=== PATIENT | male | born 1970 | race Caucasian/White ===

== ENCOUNTER 2018-02-16 09:23 | Emergency (ER) | payer OTHER, MEDICAID, SELFPAY ==
[2018-02-16 09:26] VITALS: BP 143/81; PULSE 70; RESP 14; TEMP 36.1; O2SAT 99; BMI 23.5
--- NOTE | 2018-02-16 09:47 | ED.LOWEXIN ---
HPI - Extremity Injury (Lower) General Chief Complaint: Extremity Injury, Lower Stated Complaint: RIGHT ANKLE PAIN, SURGERY TWO MONTHS AGO Time Seen by Provider: 02/16/18 09:47 Source: patient Mode of arrival: ambulatory Limitations: no limitations History of Present Illness HPI Narrative: 47-year-old male here for evaluation of right ankle pain. Patient states that 2 months ago he had a right ankle scope with debridement done by . Patient states that since then he has been progressing through physical therapy however for the past month he has noticed an increasing pain and swelling of his right ankle. He states that he went to the pool this morning to do some physical therapy and had difficult time getting out of the pool. He states that he is now back using crutches secondary to pain when he walks. He was able to schedule appointment with his operative surgeon however that his in 1 week from now. Related Data Home Medications Medication Instructions Recorded Confirmed ibuprofen 800 mg PO TIDP PRN 02/16/18 02/16/18 Previous Rx's Medication Instructions Recorded hydrocodone-acetaminophen 1 tab PO Q6H PRN #10 tab 02/16/18 Allergies Allergy/AdvReac Type Severity Reaction Status Date / Time No Known Drug Allergies Allergy Verified 02/16/18 09:29 Review of Systems Constitutional Denies chills, Denies fever(s), Denies lethargy and Denies weakness Cardiovascular Denies chest pain, Denies irregular heart rhythm, Denies lightheadedness, Denies palpitations, Denies dyspnea, Denies dyspnea on exertion and Denies orthopnea Respiratory Denies cough, Denies dyspnea, Denies dyspnea on exertion and Denies wheezing Musculoskeletal Comments: Right ankle pain and swelling Integumentary/Breasts Comments: Redness that comes and goes around his right ankle Neurologic Denies weakness Comments: Mild tingling to his right lower extremity Endocrine Denies palpitations Hematologic/Lymphatic Denies easy bruising Allergic/Immunologic Denies wheezing PFSH Social History Smoking Status: Never smoker Exam Const General: cooperative and well developed Nutritional Appearance: well nourished Orientation: alert, awake, oriented x3 and not confused Cardio Other: 2+ DP pulse on the right with brisk capillary refill Neuro General: alert, oriented x3, gait normal and no focal motor deficits Cranial Nerves: CN's II-XI intact bilaterally Speech: speech normal Motor: strength 5/5 throughout Sensory Exam: no sensory deficits noted Other: Sensation intact to light touch right lower extremity Extrem Other: Right thigh unremarkable Right knee unremarkable Right calf unremarkable Right ankle with mild swelling and tenderness to palpation throughout Right foot remarkable MDM - Extremity Injury (Lower) MDM Narrative Medical decision making narrative: Patient's physical exam today is not consistent with cellulitis. He has no fevers. His exam is also not consistent with a DVT. The swelling is localized to his right ankle. He has no calf pain. No right thigh pain. No shortness of breath. No specific trauma. His symptoms have been worsening over the past week. Will hold on x-rays for now. Attempted to contact Dr. wick however she was not in the office and not divisional merchandising manager today. Had a long discussion with the patient. Will hold on further workup for now. Will hold on lab reports for now. Will hold on radiologic studies. He was given return precautions for signs and symptoms of cellulitis versus DVT. He expressed understanding. Will give pain medication for him at night for sleeping. He will keep his appointment with Dr. Hudson next week. Expressed understanding and agreement with plan Course Last Vital Signs Temp 97.0 F L 02/16/18 09:26 Pulse 64 02/16/18 10:13 Resp 14 02/16/18 09:26 BP 143/81 H 02/16/18 09:26 Pulse Ox 99 02/16/18 09:26 Discharge Plan Departure Patient Disposition: Home, Self-Care Clinical Impression: Right ankle pain Discharge Date/Time: 02/16/18 11:01 Interventions: ED Discharge Assessment Last Done: 02/16/18 11:00 Instructions: How To Perform RICE (Rest, Ice, Compress, Elevate) Activity Restrictions/Additional Instructions: Recommend that you keep your right leg elevated and iced for the next couple days. Keep your follow-up next week with her orthopedic surgeon. Return to the emergency department for any new symptoms, worsening pain, fevers, pain that radiates up her leg, or any other concerning symptoms Prescriptions: New hydrocodone-acetaminophen 5-325 mg tablet 1 tab PO Q6H PRN (Reason: pain) Qty: 10 RF: 0 No Action ibuprofen 800 MG tablet 800 mg PO TIDP PRN (Reason: Pain (Scale Score 4-6)) RF: 0
[2018-02-16 10:13] VITALS: PULSE 64
--- NOTE | 2018-02-16 10:14 | PC.NURSE ---
Post surgical x 2 months. Now w/ increased pain in absence of new injury. No s/s of infection.
== END 2018-02-16 11:01 | disposition home or self-care (01) ==
PROVIDERS: Emergency Provider Emergency Medicine; Family Provider Family Medicine; PCP Family Medicine
DX: M25.571 Pain in right ankle and joints of right foot (principal)
CPT/HCPCS: 99282

== ENCOUNTER → 2018-09-13 15:04 | Outpatient (CLI) | payer OTHER, MEDICAID, SELFPAY ==
--- NOTE | 2018-09-13 | DI.RAD.S_ITS ---
PROCEDURE: XR KNEE LT 3V INDICATIONS: Left Knee pain TECHNIQUE: 3 views of the knee were acquired. COMPARISON: None. FINDINGS: Bones: No fractures or dislocations. No suspicious bony lesions. Minimal to mild medial and patellofemoral compartment narrowing. No erosions are identified. Soft tissues: Mild to moderate joint effusion. No suspicious soft tissue calcifications. IMPRESSION: Mild to moderate effusion with early degenerative change as above. Dictated by: Sanam Espinoza M.D. on 09/13/2018 at 17:26 Approved by: Sanam Espinoza M.D. on 09/13/2018 at 17:27
== END ==
PROVIDERS: Family Provider Family Medicine; PCP Family Medicine; Visit Provider Family Medicine
DX: M25.562 Pain in left knee (principal); M25.462 Effusion, left knee
CPT/HCPCS: 73562

== ENCOUNTER → 2020-08-22 09:59 | Outpatient (CLI) | payer OTHER, MEDICAID, SELFPAY ==
--- NOTE | 2020-08-22 | DI.CT.S_ITS ---
PROCEDURE: CT ABDOMEN PELVIS W CON INDICATIONS: Unspecified abdominal pain TECHNIQUE: After the administration of oral and intravenous contrast, 5 mm thick sections acquired from the diaphragms to the symphysis. 5 mm thick coronal and sagittal reformats were performed. For radiation dose reduction, the following was used: automated exposure control, adjustment of mA and/or kV according to patient size. COMPARISON: None. FINDINGS: Image quality: Excellent. ABDOMEN: Lung bases: Lung bases are clear. Heart size is normal. Solid organs: 13 mm cyst within the right hepatic dome superolaterally. Liver is otherwise normal in size and enhancement. Gallbladder is within normal limits . Biliary system is non-dilated. Pancreas enhances normally. Pancreas divisum. Spleen is normal in size and enhancement. No adrenal nodules. Kidneys are normal in size and enhancement, without hydronephrosis. Peritoneum and bowel: Stomach, small bowel, and colon loops are normal in caliber and wall thickness. No free fluid or air. Normal appendix. Nodes and vessels: No retroperitoneal or mesenteric adenopathy. Aorta and inferior vena cava are normal in caliber. Miscellaneous: No ventral hernias. PELVIS: Genitourinary: Bladder wall thickness is normal. Miscellaneous: No inguinal hernias or adenopathy. Bones: No suspicious bony lesions. No vertebral body compression fractures. IMPRESSION: 1. No acute process. 2. Normal appendix. Dictated by: Dawood Goel M.D. on 08/22/2020 at 12:48 Approved by: Dawood Goel M.D. on 08/22/2020 at 12:50
== END ==
PROVIDERS: Family Provider Family Medicine; PCP Family Medicine; Referring Provider Family Medicine; Visit Provider Family Medicine
DX: R10.9 Unspecified abdominal pain (principal)
CPT/HCPCS: 74177; Q9967

== ENCOUNTER → 2020-12-09 15:38 | Outpatient (CLI) | payer OTHER, MEDICAID, SELFPAY ==
--- NOTE | 2020-12-09 15:43 | DI.RAD.S_ITS ---
PROCEDURE: XR FOOT LT MIN 3V INDICATIONS: LT FOOT PAIN TECHNIQUE: 3 views of the foot were acquired. COMPARISON: [facility], , FOOT 3V RIGHT, 04/17/2014, 10:24. FINDINGS: Bones: No fractures or dislocations. Mild 1st MTP joint osteoarthritic changes are noted. Mild interphalangeal joint osteoarthritis is also seen. There is a tiny plantar calcaneal enthesophyte. Bipartite medial sesamoid of 1st metatarsal head is seen. No suspicious bony lesions. Soft tissues: No tibiotalar joint effusion. Achilles tendon appears normal. IMPRESSION: Very mild forefoot joint osteoarthritis. Tiny plantar calcaneal enthesophyte. No fracture or dislocation. Dictated by: Alejandro Aguilera M.D. on 12/09/2020 at 16:07 Approved by: Alejandro Aguilera M.D. on 12/09/2020 at 16:11
== END ==
PROVIDERS: Family Provider Family Medicine; PCP Family Medicine; Referring Provider Family Medicine; Visit Provider Family Medicine
DX: M79.672 Pain in left foot (principal); M19.072 Primary osteoarthritis, left ankle and foot
CPT/HCPCS: 73630

== ENCOUNTER → 2021-12-03 09:59 | Outpatient (CLI) | payer OTHER, MEDICAID, SELFPAY ==
--- NOTE | 2021-12-03 | DI.RAD.S_ITS ---
PROCEDURE: XR KNEE RT 3V INDICATIONS: Pain in right knee TECHNIQUE: 3 views of the knee were acquired. COMPARISON: [facility], CR, XR KNEE LT 3V, 09/13/2018, 15:22. FINDINGS: Bones: Subtle vertical lucency in the lateral tibial plateau. No dislocations. No suspicious bony lesions. Mild tricompartmental knee joint degeneration. Fragmentation of the tibial tubercle suggesting Deysi-Schlatter disease. Soft tissues: Moderate joint effusion. No suspicious soft tissue calcifications. IMPRESSION: 1. Subtle vertical lucency in the lateral tibial plateau suspect lateral tibial plateau fracture. 2. Moderate knee joint effusion. 3. Mild tricompartmental knee joint degeneration. 4. 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 Dictated by: Pia Keene M.D. on 12/03/2021 at 12:00 Approved by: Pia Keene M.D. on 12/03/2021 at 12:04
== END ==
PROVIDERS: Family Provider Family Medicine; PCP Family Medicine; Referring Provider Family Medicine; Visit Provider Family Medicine
DX: M17.11 Unilateral primary osteoarthritis, right knee (principal); M25.561 Pain in right knee; M25.461 Effusion, right knee
CPT/HCPCS: 73562

== ENCOUNTER → 2021-12-17 12:27 | Outpatient (CLI) | payer OTHER, MEDICAID, SELFPAY ==
--- NOTE | 2021-12-17 | DI.MRI.S_ITS ---
PROCEDURE: MR KNEE RT WO CON INDICATIONS: Pain in right knee TECHNIQUE: Noncontrast sagittal PD fast spin echo and T2 fast spin echo with fat saturation, sagittal 3-D FLASH with fat saturation; coronal T1 spin echo and PD fast spin echo with fat saturation, and axial PD fast spin echo with fat saturation through the knee. COMPARISON: [facility], CR, XR KNEE RT 3V, 12/03/2021, 10:05. FINDINGS: Image quality: Excellent. Menisci: The lateral meniscus is intact. Small defect in the free edge of the medial meniscus, compatible with small radial tear (11-21). Cruciate ligaments: The anterior and posterior cruciate ligaments appear intact. Medial structures: The medial collateral ligament appears intact. Visualized portions of the pes anserinus tendons appear normal. Small amount bursal fluid. Lateral structures: The lateral collateral ligament complex appears intact. The popliteus tendon appears normal. Iliotibial band appears normal. Anterior structures: The quadriceps and patellar tendons appear intact. T2 hyperintense signal along the posterior aspect of the patellar tendon attachment, which may reflect tendinopathy. Patellar alignment is normal. No femoral trochlear dysplasia or ventral trochlear prominence. No edema in the infrapatellar fat pad. Bones and cartilage: Minimal displaced fracture of the lateral tibial plateau (7-9) with adjacent contusion. Small focus of subchondral edema in the anterior aspect, lateral femoral condyle with overlying thinning of the hyaline cartilage. Signal heterogeneity and thinning of the tricompartment hyaline cartilage. 3.5 mm partial thickness defect in the hyaline cartilage overlying the patellar apex. Joint space: Small knee joint fluid. A 7.4 x 1.6 x 3.1 cm T2 hyperintense lesion is seen in the popliteal fossa, most consistent with a Rodriguez cyst. IMPRESSION: 1. Minimal displaced fracture of the lateral tibial plateau with adjacent contusion. 2. Rodriguez's cyst as detailed above. 3. Small joint effusion. 4. Small radial tear in the medial meniscus. 5. Tendinopathy of the distal patellar tendon. 6. Pes anserine bursitis. Dictated by: Cory Haque M.D. on 12/17/2021 at 14:10 Approved by: Cory Haque M.D. on 12/17/2021 at 14:24
== END ==
PROVIDERS: Family Provider Family Medicine; PCP Family Medicine; Referring Provider Family Medicine; Visit Provider Family Medicine
DX: M25.561 Pain in right knee (principal); S82.141A Displaced bicondylar fracture of right tibia, initial encounter for closed fracture; M71.21 Synovial cyst of popliteal space [Baker], right knee; M25.461 Effusion, right knee; S83.241A Other tear of medial meniscus, current injury, right knee, initial encounter; M71.561 Other bursitis, not elsewhere classified, right knee
CPT/HCPCS: 73721

== ENCOUNTER → 2022-05-19 15:43 | Outpatient (CLI) | payer OTHER, MEDICAID, SELFPAY ==
--- NOTE | 2022-05-19 | DI.RAD.S_ITS ---
PROCEDURE: XR WRIST LT MIN 3V INDICATIONS: pain in left wrist TECHNIQUE: 4 views of the wrist were acquired. COMPARISON: None. FINDINGS: Bones: No fractures or dislocations. No suspicious bony lesions. Mild 1st CMC joint space narrowing with periarticular osteophyte formation. Scaphoid view: Intact scaphoid. Soft tissues: No suspicious soft tissue calcifications. IMPRESSION: Mild 1st CMC joint degeneration. Dictated by: Skip Bobby [facility] Interpreted: Last Cottrell MD on 05/19/2022 at 15:56 Transcribed by: CONRAD on 05/19/2022 at 15:57 Approved by: Last Cottrell M.D. on 05/19/2022 at 17:57
== END ==
PROVIDERS: Family Provider Family Medicine; PCP Family Medicine; Referring Provider Family Medicine; Visit Provider Family Medicine
DX: M18.12 Unilateral primary osteoarthritis of first carpometacarpal joint, left hand (principal); M25.532 Pain in left wrist
CPT/HCPCS: 73110

== ENCOUNTER → 2022-06-15 11:41 | Outpatient (CLI) | payer OTHER, MEDICAID, SELFPAY ==
--- NOTE | 2022-06-15 | DI.MRI.S_ITS ---
PROCEDURE: MR WRIST LT WO CON INDICATIONS: Pain in left wrist TECHNIQUE: Noncontrast coronal proton density fast spin echo and T2 fast spin echo with fat saturation; coronal 3-D gradient echo, axial T1 spin echo and T2 fast spin echo with fat saturation, sagittal T1 spin echo through the wrist. COMPARISON: [facility], CR, XR WRIST LT MIN 3V, 05/19/2022, 15:49. FINDINGS: Image quality: Excellent. Bones and cartilage: The carpal bones are normally aligned. Significant marrow edema involving distal radius is seen with internal linear hypointense signal consistent with nondisplaced fracture involving distal radius with fracture line extending to radiocarpal joint space. Mild edema involving lunate is also seen without discrete fracture line. Mild wrist joint osteoarthritic changes are seen more prominent at 1st CMC joint. No evidence of avascular necrosis of femoral head. Carpal ligaments: The scapholunate and lunotriquetral ligaments appear intact. In the absence of intra-articular contrast, the extrinsic carpal ligaments are not well identified. On sagittal images, the pisohamate ligament appears intact. Triangular fibrocartilage complex: The triangular fibrocartilage appears intact. The adjacent meniscal homolog appears normal in the absence of intra-articular contrast. The extensor carpi ulnaris tendon is normal in location and morphology. Tendons and soft tissues: Dorsal soft tissue edema and swelling is seen particularly over dorsal aspect of distal radius. The carpal tunnel structures appear normal, including the median nerve. The ulnar nerve appears normal within Guyon's canal. All six extensor tendon compartments demonstrate normal morphology, without pathologic tendon sheath fluid. No soft tissue ganglion cysts. IMPRESSION: 1. Nondisplaced intra-articular fracture involving distal radius. Mild contusion involving lunate. No other fracture or dislocation. Mild wrist joint osteoarthritis. No evidence of osteonecrosis. 2. Intrinsic and extrinsic wrist ligaments are grossly intact. Triangular fibrocartilage complex is intact. 3. Extensor and flexor tendons show no gross abnormalities. Nonspecific dorsal soft tissue swelling and edema adjacent to distal radial fracture site. Dictated by: Alejandro Aguilera M.D. on 06/15/2022 at 13:45 Approved by: Alejandro Aguilera M.D. on 06/15/2022 at 13:47
== END ==
PROVIDERS: Family Provider Family Medicine; PCP Family Medicine; Referring Provider Family Medicine; Visit Provider Family Medicine
DX: M25.532 Pain in left wrist (principal); S52.572A Other intraarticular fracture of lower end of left radius, initial encounter for closed fracture; M19.032 Primary osteoarthritis, left wrist
CPT/HCPCS: 73221

== ENCOUNTER → 2024-06-23 08:02 | Outpatient (CLI) | payer OTHER, MEDICAID, SELFPAY ==
--- NOTE | 2024-06-23 08:03 | DI.CT.S_ITS ---
PROCEDURE: CT ABDOMEN PELVIS W CON INDICATIONS: FLANK PAIN TECHNIQUE: After the administration of intravenous contrast, axial sections acquired from the lung bases to the pubic symphysis. Coronal and sagittal reformats were performed. For radiation dose reduction, the following was used: automated exposure control, adjustment of mA and/or kV according to patient size. COMPARISON: [facility], CT, CT ABDOMEN PELVIS W CON, 08/22/2020, 11:04. FINDINGS: Image quality: Diagnostic. Lower Chest: No significant findings. ABDOMEN: Liver: No solid mass. There is diffuse hypoattenuation of the liver parenchyma relative to the spleen compatible with hepatic steatosis. Stable appearance of hepatic cyst in the hepatic dome. Gallbladder: No radiopaque gallstones or wall thickening. Biliary ducts: No biliary dilation. Pancreas: Homogeneous enhancement without focal lesions or pancreatic ductal dilatation. No peripancreatic inflammation or organized fluid collections. Spleen: Size is within normal limits. Adrenal Glands: No adrenal nodules. Kidneys and Ureters: No hydronephrosis. No solid mass. No complex renal cystic lesion which requires follow up. Homogeneous enhancement of the bilateral renal parenchyma. Stomach and Bowel: Normal colonic caliber, without significant wall thickening. Normal appendix. No evidence for small bowel obstruction or associated inflammatory changes. Peritoneum: No abnormal intraperitoneal fluid. No free air. Ventral Wall: No significant ventral hernia. Abdominal Nodes: No retroperitoneal or mesenteric adenopathy by size criteria. Vessels: Aorta and inferior vena cava are normal in size. PELVIS: Pelvic Organs: Unremarkable. Bladder: No bladder wall thickening, accounting for underdistention. Pelvic Nodes: No enlarged lymph nodes. Miscellaneous: No inguinal hernias are seen. Bones: No aggressive osseous abnormality. No acute compression fracture. IMPRESSION: CT abdomen and pelvis without acute abnormalities to explain patient's symptoms. No evidence for obstructive uropathy. No evidence for bowel obstruction. No evidence for diverticular disease. Normal appendix. Hepatic steatosis. Dictated by: Brandan Keller M.D. on 06/23/2024 at 12:02 Approved by: Brandan Keller M.D. on 06/23/2024 at 12:34
== END ==
PROVIDERS: Family Provider Family Medicine; PCP Family Medicine; Referring Provider Family Medicine; Visit Provider Family Medicine
DX: K76.0 Fatty (change of) liver, not elsewhere classified (principal); K76.89 Other specified diseases of liver; R10.9 Unspecified abdominal pain
CPT/HCPCS: 74177; Q9967

== ENCOUNTER → 2025-01-16 16:33 | Outpatient (CLI) | payer OTHER, SELFPAY ==
--- NOTE | 2025-01-16 | DI.MRI.S_ITS ---
PROCEDURE: MR KNEE RT WO CON INDICATIONS: pain in right knee TECHNIQUE: Noncontrast sagittal PD fast spin echo and T2 fast spin echo with fat saturation, sagittal 3-D FLASH with fat saturation; coronal T1 spin echo and PD fast spin echo with fat saturation, and axial PD fast spin echo with fat saturation through the knee. COMPARISON: [facility], MR, MR KNEE RT WO CON, 12/17/2021, 13:10. FINDINGS: Image quality: Excellent. Some images limited by motion artifacts, pulsation artifacts or low [id number]. Bones and cartilage: Heterogeneous increased T2 weighted signal, irregularity of the patellar cartilage centrally at the patellar apex (axial series 8 images 8 -10) which may be a cause of pain mildly progressed compared to the prior exam. [id number] diffuse cartilaginous thinning in the medial greater than lateral compartment with small osteophytes. No bone edema, no MR evidence of fracture. Menisci: The medial and lateral menisci demonstrate normal morphology and internal signal. Suspected posterior meniscocapsular separation medially and laterally similar to the prior exam. Cruciate ligaments: The anterior and posterior cruciate ligaments appear intact. Medial structures: Previously noted popliteal cyst is decreased in size compared to the prior exam now measures up to approximately 5 centimeters cc by 2 centimeters AP x 1 centimeter transverse. The medial collateral ligament appears intact. The semimembranosus tendon is intact. Mild fluid/edema surrounding the pes anserinus tendons suspicious for mild tenosynovitis or bursitis. Lateral structures: The lateral collateral ligament, long and short heads of the biceps femoris tendon appear intact. The popliteus tendon appears normal. Iliotibial band appears normal. Anterior structures: Abnormal appearance of the patellar ligament at its insertion on the anterior tibia with fragmentation and heterogeneous signal similar to the prior exam commonly related to remote Deysi-Schlatter's or remote injury. The quadriceps tendon is intact. Patellar alignment is normal. Joint space: There is physiologic knee joint fluid. IMPRESSION: Mildly progressed heterogeneous signal and appearance with irregularity of the cartilage, focal cartilage defect of the central aspect of the patella. Degenerative changes with diffuse cartilaginous thinning in the medial greater than lateral compartments with osteophytes mildly progressed. Heterogeneous signal, fragmentation of the patellar ligament at its attachment on the anterior tibia as discussed above unchanged. Other chronic findings as above. Dictated by: Shahab Richards M.D. on 01/17/2025 at 12:30 Approved by: Shahab Richards M.D. on 01/17/2025 at 12:48
== END ==
PROVIDERS: Family Provider Family Medicine; PCP Family Medicine; Referring Provider Family Medicine; Visit Provider Family Medicine
DX: M71.21 Synovial cyst of popliteal space [Baker], right knee (principal); M25.561 Pain in right knee; M23.51 Chronic instability of knee, right knee; G89.29 Other chronic pain
CPT/HCPCS: 73721